=== PATIENT | female | born 1965 | race Caucasian/White ===

== ENCOUNTER 2019-01-09 11:50 | Emergency (ER) | payer SELFPAY ==
[2019-01-09] MEDS ORDERED: LIDOCAINE 1% INJ-PF (10 MG/ML) 30 ML SDV INJ ONE (13:54)
[2019-01-09] MEDS ORDERED: DIPH/PERTUSS(ACELL)/TETANUS VAC/PF 0.5 ML SYR (>=10YO) IM ONE (13:54)
--- NOTE | 2019-01-09 13:55 | ER Document Report ---
ED Medical Screen (RME) - General Chief Complaint: Laceration Stated Complaint: FINGER LACERATION Time Seen by Provider: 01/09/19 13:52 TRAVEL OUTSIDE OF THE [place] 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 Able to move finger w/o difficulty. Unknown last tetanus. I have treated and performed a rapid initial assessment of this patient. A comprehensive ED assessment and evaluation of the patient, analysis of test results and completion of medical decision making process will be conducted by additional ED providers. PHYSICAL EXAMINATION: GENERAL: Well-appearing, well-nourished and in no acute distress. A&Ox4. Answers questions appropriately. Rt index: approx 1.5cm linear superficial laceration noted dorsal distal finger. N/V intact distal. - Related Data Allergies/Adverse Reactions: hydrocortisone Allergy (Verified 01/09/19 11:51) Physical Exam - Vital signs Vitals: Temp Pulse Resp BP Pulse Ox 98 F 87 18 177/84 H 94 01/09/19 11:55 01/09/19 11:55 01/09/19 11:55 01/09/19 11:55 01/09/19 11:55 Course - Vital Signs Vital signs: Temp Pulse Resp BP Pulse Ox 98 F 87 18 177/84 H 94 01/09/19 11:55 01/09/19 11:55 01/09/19 11:55 01/09/19 11:55 01/09/19 11:55
--- NOTE | 2019-01-09 14:43 | ER Document Report ---
ED General - General Chief Complaint: Laceration Stated Complaint: FINGER LACERATION Time Seen by Provider: 01/09/19 13:52 Mode of Arrival: Ambulatory Information source: Patient TRAVEL OUTSIDE OF THE [place] IN LAST 30 DAYS: No - HPI Patient complains to provider of: Right index finger laceration Onset: Just prior to arrival Onset/Duration: Sudden Quality of pain: Sharp Severity: Severe Pain Level: 5 Associated symptoms: None Exacerbated by: Denies Relieved by: Denies Similar symptoms previously: No Recently seen / treated by doctor: No Notes: 53-year-old female with right index finger laceration. Cut it with a blade while cleaning a window. Last tetanus unknown. Has good movement in the right index finger. - Related Data Allergies/Adverse Reactions: hydrocortisone Allergy (Verified 01/09/19 11:51) Past Medical History - General Information source: Patient - Social History Smoking Status: Current Every Day Smoker Family History: Reviewed & Not Pertinent Review of Systems - Review of Systems Notes: Constitutional: No fevers. No chills. EENT: No eye redness. No eye pain. No ear pain. No sore throat. Cardiovascular: No chest pain. No palpitations. Respiratory: No cough. No shortness of breath. No respiratory distress. Gastrointestinal: No abdominal pain. No nausea, vomiting, or diarrhea. Genitourinary: Atraumatic. No lesions. No pain. No discharge. Musculoskeletal: Positive right index finger laceration Skin: No rash or lesions. Lymphatic: No swollen lymph nodes. Neurologic: No headache. No syncope. Psychiatric: No suicidal or homicidal ideation. Physical Exam - Vital signs Vitals: Temp Pulse Resp BP Pulse Ox 98 F 87 18 177/84 H 94 01/09/19 11:55 01/09/19 11:55 01/09/19 11:55 01/09/19 11:55 01/09/19 11:55 - Notes Notes: General: Well-developed, well-nourished. In no acute distress. Non-toxic appearing. Cardiac: Well-perfused. Regular rate and rhythm. No murmurs, rubs, or gallops. Pulmonary: No respiratory distress. No cyanosis. Bilateral lung fiels are clear to auscultation. Abdominal: Non-distended. Non-rigid. Bowels sounds are present in all four quadrants. No guarding or rebound. HEENT: Head is atraumatic. Conjunctivae not reddened. No tearing. PERRL. EOMI. Orbits atraumatic. No periorbital swelling or erythema. Oropharynx is without erythema, swelling, or exudates. Neck: Supple. No adenopathy. No meningismus. Dermatologic: Warm with good turgor. No rash. Atraumatic. Chest: Atraumatic. No chest wall tenderness to palpation. Musculoskeletal: 3 cm laceration aspect right index finger. No active bleeding. Full range of motion at all joints. Distal neurovascular exam is intact Genitourinary: Examination deferred Neurologic: No gross neurologic deficits. Psychiatric: Normal mood. Course - Vital Signs Vital signs: Temp Pulse Resp BP Pulse Ox 98 F 87 18 177/84 H 94 01/09/19 11:55 01/09/19 11:55 01/09/19 11:55 01/09/19 11:55 01/09/19 11:55 Procedures - Laceration/Wound Repair Right index finger Time completed: 14:40 Wound length (cm): 3 Wound's Depth, Shape: Linear Laceration pre-procedure: Sterile PPE donned, Sterile drapes applied, Shur-Clens applied Anesthetic type: 1% Lidocaine Volume Anesthetic (mLs): 5 Wound explored: Clean Wound Repaired With: Sutures Suture Size/Type: 4:0, Ethilon Number of Sutures: 7 Layer Closure?: No Post-procedure wound care: Sterile dressing applied, Splint applied Post-procedure NV exam normal: Yes Complications: No Discharge - Discharge Clinical Impression: Elevated blood pressure reading Finger laceration Qualifiers: Encounter type: initial encounter Finger: index finger Damage to nail status: without damage Foreign body presence: without foreign body Laterality: right Qualified Code(s): S61.210A - Laceration without foreign body of right index finger without damage to nail, initial encounter Condition: Good Disposition: HOME, SELF-CARE Instructions: Antibiotic Ointment Protection ([facility]), Laceration Care ([facility]), Soap Cleansing ([facility]), Tetanus Immunization Given ([facility]) Additional Instructions: Sutures will be ready to come out in 10 days. You may return here to have this done. However you can also see your doctor or the [facility] for this service. If you would like to have the wound rechecked, please come in in 2 days and have 1 of the providers take a look at it for you. Forms: Smoking Cessation Education, Elevated Blood Pressure Referrals: [facility] [Provider Group] - 01/19/19
[2019-01-09 14:56] VITALS: BP 164/79
== END 2019-01-09 14:56 | disposition home or self-care (01) ==
LOC: ER 11:50
PROC: 0HQFXZZ Repair Right Hand Skin, External Approach (ICD-10-PCS; principal; 2019-01-09)
DX: S61.210A Laceration without foreign body of right index finger without damage to nail, initial encounter (principal); R03.0 Elevated blood-pressure reading, without diagnosis of hypertension; W45.8XXA Other foreign body or object entering through skin, initial encounter; F17.200 Nicotine dependence, unspecified, uncomplicated
CPT/HCPCS: 99282; 90471; 90715; 12002; J3490

== ENCOUNTER 2019-01-20 20:29 | Emergency (ER) | payer SELFPAY ==
--- NOTE | 2019-01-20 22:06 | ER Document Report ---
HPI - HPI Time Seen by Provider: 01/20/19 22:05 Pain Level: 0 Notes: Patient is a 53-year-old female who presents for suture removal status post placement 11 days ago to her right index finger. Patient had 7 sutures placed at that time. Patient states that she has noticed some mild swelling to the finger without significant redness or drainage. She has not noticed any opening to the wound. No other concerns or complaints. Denies any headache, fever, URI, sore throat, chest pain, palpitations, syncope, cough, shortness of breath, wheeze, dyspnea, abdominal pain, nausea/vomiting/diarrhea, urinary retention, dysuria, hematuria, loss of control of bowel or bladder, numbness/tingling, muscle paralysis/weakness, or rash. - ROS Systems Reviewed and Negative: Yes All other systems reviewed and negative - REPRODUCTIVE Reproductive: DENIES: : Past Medical History - Social History Smoking Status: Current Every Day Smoker Family History: Reviewed & Not Pertinent Patient has suicidal ideation: No Patient has homicidal ideation: No Renal/ Medical History: Denies: Hx Peritoneal Dialysis Vertical Provider Document - CONSTITUTIONAL Agree With Documented VS: Yes Notes: PHYSICAL EXAMINATION: GENERAL: Well-appearing, well-nourished and in no acute distress. LUNGS: Breath sounds clear to auscultation bilaterally and equal. No wheezes rales or rhonchi. HEART: Regular rate and rhythm without murmurs, rubs, gallops. Musculoskeletal: Rt index: FROM to passive/active. Strength 5+/5. N/v intact distal. + 7 sutures intact. There is mild erythema at the distal laceration site with mild swelling of the finger noted. No streaks or purulence. + mild tenderness to the distal lac site. Extremities: No cyanosis, clubbing, or edema b/l. Peripheral pulses 2+. Capillary refill less than 3 seconds. NEUROLOGICAL: Normal speech, normal gait. Normal sensory, motor exams PSYCH: Normal mood, normal affect. SKIN: see above. - INFECTION CONTROL TRAVEL OUTSIDE OF THE [place] IN LAST 30 DAYS: No Course - Re-evaluation Re-evalutation: 01/20/19 22:18 Patient is an afebrile, well-hydrated, 53-year-old female who presents for suture removal and noted possible mild infection of the digit without obvious fl uctuance or abscess. Vitals are acceptable without significant tachycardia, tachypnea, or hypoxia. PE is otherwise unremarkable. Sutures were removed successfully without any complications. There is no evidence of wound dehiscence. There is some mild warmth and erythema associated so I will cover her with an antibiotic. Wound instructions reviewed. Patient to recheck with your PCM later this week. Return to the ED with any other worsening/concerning symptoms. Patient is in agreement. - Vital Signs Vital signs: Temp Pulse Resp BP Pulse Ox 98.0 F 88 20 150/84 H 96 01/20/19 20:53 01/20/19 20:53 01/20/19 20:53 01/20/19 20:53 01/20/19 20:53 Discharge - Discharge Clinical Impression: Visit for suture removal Condition: Stable Disposition: HOME, SELF-CARE Instructions: Suture Removal Additional Instructions: Keep the skin clean Wash with soap and water Tylenol/ibuprofen if needed Take medication as directed Monitor for any worsening symptoms Recheck with your PCM in 3-5 days Return to the ED with any worsening symptoms and/or development of fever, headache, chest pain, palpitations, syncope, shortness of breath, trouble breathing, abdominal pain, n/v/d, abscess, purulent discharge, red streaks, worsening swelling, or other worsening symptoms that are concerning to you. Prescriptions: Clindamycin HCl [Cleocin 300 mg Capsule] 300 mg PO TID #30 capsule Forms: Elevated Blood Pressure Referrals: [facility] [Provider Group] - Follow up as needed
[2019-01-20 22:26] VITALS: BP 158/78
== END 2019-01-20 22:23 | disposition home or self-care (01) ==
LOC: ER 20:29
DX: S61.210D Laceration without foreign body of right index finger without damage to nail, subsequent encounter (principal); X58.XXXD Exposure to other specified factors, subsequent encounter; L53.9 Erythematous condition, unspecified; M79.89 Other specified soft tissue disorders; F17.200 Nicotine dependence, unspecified, uncomplicated

== ENCOUNTER 2019-06-11 14:07 | Emergency (ER) | payer SELFPAY ==
[2019-06-11 14:13] VITALS: BP 163/87
[2019-06-11] MEDS ORDERED: LIDOCAINE 1% INJ-PF (10 MG/ML) 30 ML SDV INJ ONE (14:17)
--- NOTE | 2019-06-11 14:23 | ER Document Report ---
HPI - HPI Time Seen by Provider: 06/11/19 14:17 Pain Level: 0 Notes: Patient is a 54-year-old female no significant past medical history presents complaining laceration to her right anterior lateral wrist that occurred prior to arrival. Patient states that she was putting something away when she cut herself on a knife that was relatively clean. Her last tetanus was a year ago. She is able to move her fingers without difficulty. Patient states that the bleeding is been well controlled with gauze. Denies any drug allergies aside from hydrocortisone cream. No other concerns or complaints. Denies any headache, fever, neck pain, URI, sore throat, chest pain, palpitations, syncope, cough, shortness of breath, wheeze, dyspnea, abdominal pain, nausea/vomiting/diarrhea, urinary retention, dysuria, hematuria, loss of control of bowel or bladder, numbness/tingling, muscle paralysis/weakness, or rash. - ROS Systems Reviewed and Negative: Yes All other systems reviewed and negative - REPRODUCTIVE Reproductive: DENIES: : Past Medical History - Social History Smoking Status: Current Every Day Smoker Family History: Reviewed & Not Pertinent Patient has suicidal ideation: No Patient has homicidal ideation: No Renal/ Medical History: Denies: Hx Peritoneal Dialysis Vertical Provider Document - CONSTITUTIONAL Agree With Documented VS: Yes Notes: PHYSICAL EXAMINATION: GENERAL: Well-appearing, well-nourished and in no acute distress. HEAD: Atraumatic, normocephalic. NECK: Normal range of motion, supple without lymphadenopathy. No midline tenderness. LUNGS: Breath sounds clear to auscultation bilaterally and equal. No wheezes rales or rhonchi. HEART: Regular rate and rhythm without murmurs, rubs, gallops. Musculoskeletal: Rt hand/wrist: + irregular, superficial 3cm laceration noted. No significant active bleeding. No erythema, warmth, ecchymosis, deformity, or swelling noted. N/V intact distal. FROM to passive/active at the wrist. 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 No bony tenderness. Extremities: No cyanosis, clubbing, or edema b/l. Peripheral pulses 2+. Capillary refill less than 3 seconds. NEUROLOGICAL: Normal speech, normal gait. Normal sensory, motor exams otherwise unremarkable PSYCH: Normal mood, normal affect. SKIN: see above. No rash - INFECTION CONTROL TRAVEL OUTSIDE OF THE [place] IN LAST 30 DAYS: No Course - Re-evaluation Re-evalutation: 06/11/19 15:05 Patient is an afebrile, well-hydrated, 54-year-old female who presents to the ED with a laceration to her right anterior lateral wrist. Vitals are acceptable. PE is otherwise unremarkable for any neurovascular compromise, obvious tendon/ligament rupture, obvious fracture/dislocation, septic joint. Patient is nontoxic-appearing and is tolerating p.o. without difficulties. Wound was thoroughly irrigated and cleansed. Wound edges were approximated appropriately utilizing 6 simple interrupted sutures. Wound dressing was placed and wound instructions reviewed. Patient tolerated procedure well without any complications. Tetanus was reported to be utd. No further labs or imaging warranted. Sutures will need removed in 10 days. Recheck with your PCM in 2-3 days. Consider consult orthopedics if needed. Return to the ED with any worsening/concerning symptoms otherwise as reviewed in discharge. Patient is in agreement. - Vital Signs Vital signs: Temp Pulse Resp BP Pulse Ox 97.7 F 101 H 18 163/87 H 96 06/11/19 14:12 06/11/19 14:12 06/11/19 14:12 06/11/19 14:12 06/11/19 14:12 Procedures - Laceration/Wound Repair Right Wrist Wound length (cm): 3 Wound's Depth, Shape: Superficial, Irregular Laceration pre-procedure: Sterile PPE donned, Sterile drapes applied, Other - chlorhexadine/saline Anesthetic type: 1% Lidocaine Volume Anesthetic (mLs): 4 Wound explored: Clean, No foreign body removed Irrigated w/ Saline (mLs): 200 Wound Debrided: Minimal Wound Repaired With: Sutures Suture Size/Type: 4:0, Ethilon Number of Sutures: 6 Layer Closure?: No Post-procedure wound care: Sterile dressing applied Post-procedure NV exam normal: Yes Complications: No Discharge - Discharge Clinical Impression: Laceration of right wrist Qualifiers: Encounter type: initial encounter Qualified Code(s): S61.511A - Laceration without foreign body of right wrist, initial encounter Condition: Stable Disposition: HOME, SELF-CARE Instructions: Soap Cleansing ([facility]) Additional Instructions: Do not shower or bathe for 24 hours. After 24 hours you may shower but no submersion of the wound under water. Keep the original dressing on the wound for 24 hours unless the drainage soaks through. Change the dressing daily thereafter and keep the knots of the suture material clean from any dried dis charge. You may leave the wound open to the air once there is no more discharge. See your PCM in 2-3 days for a recheck. Monitor for any signs of worsening pain or redness, purulent drainage, streaks, and/or fever. Return to the ED if noticing any of the above symptoms or as needed. Take medications as directed. Your sutures will need to be removed in 10 days. Prescriptions: Cephalexin Monohydrate [Keflex 500 mg Capsule] 500 mg PO BID #10 capsule Forms: Elevated Blood Pressure, Smoking Cessation Education Referrals: [facility] [Provider Group] - Follow up as needed
== END 2019-06-11 15:17 | disposition home or self-care (01) ==
LOC: ER 14:07
DX: S61.511A Laceration without foreign body of right wrist, initial encounter (principal); W26.0XXA Contact with knife, initial encounter; Y93.89 Activity, other specified; F17.200 Nicotine dependence, unspecified, uncomplicated
CPT/HCPCS: 12002; J3490; 99282

== ENCOUNTER 2019-06-22 17:28 | Emergency (ER) | payer SELFPAY ==
[2019-06-22 17:32] VITALS: BP 160/83
--- NOTE | 2019-06-22 18:20 | ER Document Report ---
HPI - HPI Patient complains to provider of: Suture removal Time Seen by Provider: 06/22/19 18:13 Onset: Other - 11 days Onset/Duration: Better Pain Level: Denies Context: Patient is here for suture removal to hand laceration. Patient denies any pain symptoms. Patient states she did start to notice some mild redness around the sutures. No purulent drainage. Associated Symptoms: None Exacerbated by: Denies Relieved by: Denies Similar symptoms previously: No Recently seen / treated by doctor: Yes - ROS ROS below otherwise negative: Yes Systems Reviewed and Negative: Yes All other systems reviewed and negative - CONSTITUTIONAL Constitutional: DENIES: Fever - GASTROINTESTINAL Gastrointestinal: DENIES: Nausea - REPRODUCTIVE Reproductive: DENIES: : - DERM Skin Color: Erythema Skin Problems: Laceration Past Medical History - General Information source: Patient - Social History Smoking Status: Never Smoker Chew tobacco use (# tins/day): No Frequency of alcohol use: None Drug Abuse: None 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 IN LAST 30 DAYS: No - HEENT HEENT: Atraumatic, Normocephalic - NECK Neck: Normal Inspection - RESPIRATORY Respiratory: No Respiratory Distress - CARDIOVASCULAR Pulses: Normal: Radial - MUSCULOSKELETAL/EXTREMETIES Musculoskeletal/Extremeties: MAEW, FROM - NEURO Level of Consciousness: Awake, Alert, Appropriate Motor/Sensory: No Motor Deficit - DERM Integumentary: Warm, Dry, Laceration - Sutured laceration to the radial aspect of thenar eminence, patient with 6 intact sutures, wound edges approximated, mild erythema around the sutures, no lymphangitis Course - Re-evaluation Re-evalutation: 06/22/19 18:21 Patient with mild erythema surrounding the sutures, suspect local reaction to the suture material, no concern for cellulitis or lymphangitis at this time. - Vital Signs Vital signs: Temp Pulse Resp BP Pulse Ox 97.5 F 94 18 160/83 H 96 06/22/19 17:31 06/22/19 17:31 06/22/19 17:31 06/22/19 17:31 06/22/19 17:31 Discharge - Discharge Clinical Impression: Visit for suture removal Condition: Stable Disposition: HOME, SELF-CARE Instructions: Care of Steri-Strip Closure ([facility]), Suture Removal Additional Instructions: Return immediately for any new or worsening symptoms Followup with your primary care provider, call tomorrow to make a followup appointment Forms: Smoking Cessation Education Referrals: [facility] [Provider Group] - Follow up as needed
== END 2019-06-22 18:26 | disposition home or self-care (01) ==
LOC: ER 17:28
DX: S61.411D Laceration without foreign body of right hand, subsequent encounter (principal); X58.XXXD Exposure to other specified factors, subsequent encounter

== ENCOUNTER 2019-08-20 18:11 | Emergency (ER) | payer BC ==
--- NOTE | 2019-08-20 19:03 | RADIOLOGY REPORT (SQ) ---
EXAM DESCRIPTION: CHEST SINGLE VIEW COMPLETED DATE/TIME: 08/20/2019 6:53 pm REASON FOR STUDY: sob COMPARISON: None. EXAM PARAMETERS: NUMBER OF VIEWS: One view. TECHNIQUE: Single frontal radiographic view of the chest acquired. RADIATION DOSE: NA LIMITATIONS: None. FINDINGS: LUNGS AND PLEURA: No opacities, masses or pneumothorax. No pleural effusion. MEDIASTINUM AND HILAR STRUCTURES: No masses. Contour normal. HEART AND VASCULAR STRUCTURES: Heart normal in size. Normal vasculature. BONES: No acute findings. HARDWARE: None in the chest. OTHER: No other significant finding. IMPRESSION: NO ACUTE RADIOGRAPHIC FINDING IN THE CHEST. TECHNICAL DOCUMENTATION: JOB ID: [id number] [employer]- All Rights Reserved Reading location - IP/workstation name: [email or web address]
[2019-08-20 19:26] LABS: ABSOLUTE LYMPHOCYTES (AUTO) 0.9 10^3/uL (0.5-4.7); ABSOLUTE MONOCYTES (AUTO) 0.9 10^3/uL (0.1-1.4); ABSOLUTE NEUT (AUTO) 5.4 10^3/uL (1.7-8.2); BASOPHILS % (AUTO) 0.4 % (0-2); HEMATOCRIT 45.2 % (36.0-47.0); HEMOGLOBIN 15.9 g/dL (12.0-15.5); LYMPHOCYTES % (AUTO) 12.5 % (13-45); MEAN CORPUSCULAR HEMOGLOBIN 32.4 pg (27.0-33.4); MEAN CORPUSCULAR HGB CONC 35.1 g/dL (32.0-36.0); MEAN CORPUSCULAR VOLUME 93 fl (80-97); MONOCYTES % (AUTO) 12.8 % (3-13); PLATELET COUNT 218 10^3/uL (150-450); RED BLOOD COUNT 4.89 10^6/uL (3.72-5.28); RED CELL DISTRIBUTION WIDTH 14.2 % (11.5-14.0); SEGMENTED NEUTROPHILS % (AUTO) 74.3 % (42-78); TOTAL CELLS COUNTED % (AUTO) 100 %; WHITE BLOOD COUNT 7.3 10^3/uL (4.0-10.5)
[2019-08-20 19:39] LABS: ALBUMIN 4.5 g/dL (3.5-5.0); ALKALINE PHOSPHATASE 77 U/L (38-126); ANION GAP 12 (5-19); ASPARTATE AMINO TRANSFERASE 34 U/L (14-36); BILIRUBIN,TOTAL 0.5 mg/dL (0.2-1.3); BLOOD UREA NITROGEN 12 mg/dL (7-20); CALCIUM 9.5 mg/dL (8.4-10.2); CARBON DIOXIDE 29 mmol/L (22-30); CHLORIDE 96 mmol/L (98-107); GLUCOSE 90 mg/dL (75-110); TOTAL PROTEIN 7.3 g/dL (6.3-8.2)
[2019-08-20] MEDS ORDERED: IPRATROPIUM/ALBUTEROL 0.5-2.5 MG/3 ML AMPUL NEB ONE (21:59)
[2019-08-20] MEDS ORDERED: METHYLPREDNISOLONE INJ 125 MG/2 ML SDV IV ONE (21:59)
[2019-08-20] MEDS ORDERED: KETOROLAC TROMETHAMINE INJ/PF 30 MG/1 ML SDV IV ONE (22:09)
[2019-08-20] MEDS ORDERED: BENZONATATE 100 MG CAPSULE PO ONE (22:09)
--- NOTE | 2019-08-20 22:17 | ER Document Report ---
ED General - General Chief Complaint: Shortness Of Breath Stated Complaint: DIFFICULTY BREATHING Time Seen by Provider: 08/20/19 21:50 Primary Care Provider: [facility] [Provider Group] - Follow up in 3-5 days Notes: 54-year-old female that is a smoker presents for dyspnea and 1 week history of productive cough. Patient states she was seen by her PCP 1 week ago and was prescribed amoxicillin that she has been taking for the past 7 days. Patient was given breathing treatment by EMS. Patient denies any history of asthma or COPD. Patient states she has been coughing up green mucus. Patient also rep orts fever that has improved with Motrin/Tylenol. Patient denies any chest pain, abdominal pain, nausea/vomiting. TRAVEL OUTSIDE OF THE [place] IN LAST 30 DAYS: No - Related Data Allergies/Adverse Reactions: hydrocortisone Allergy (Verified 06/22/19 18:06) Past Medical History - Social History Smoking Status: Current Every Day Smoker Family History: Reviewed & Not Pertinent Patient has suicidal ideation: No Patient has homicidal ideation: No Renal/ Medical History: Denies: Hx Peritoneal Dialysis Past Surgical History: Reports: Other - Axillary surgery for hidradenitis Review of Systems - Review of Systems Notes: Constitutional: Positive for fever. HENT: Negative for sore throat. Eyes: Negative for visual changes. Cardiovascular: Negative for chest pain. Respiratory: Positive for shortness of breath and productive cough. Gastrointestinal: Negative for abdominal pain, vomiting or diarrhea. Genitourinary: Negative for dysuria. Musculoskeletal: Negative for back pain. Skin: Negative for rash. Neurological: Negative for headaches, weakness or numbness. 10 point ROS negative except as marked above and in HPI. Physical Exam - Vital signs Vitals: Resp Pulse Ox 27 H 94 08/20/19 18:39 08/20/19 18:39 - Notes Notes: GENERAL: Well-appearing, well-nourished and in no acute distress. HEAD: Atraumatic, normocephalic. EYES: Extraocular movements intact, sclera anicteric, conjunctiva are normal. NECK: Normal range of motion, supple without lymphadenopathy or JVD. LUNGS: Nonproductive cough. Decreased breath sounds with mild wheezing. No accessory muscle use. No tripoding. No cyanosis. HEART: Regular rate and rhythm without murmurs, rubs or gallops. EXTREMITIES: Normal range of motion, no pitting or edema. No clubbing or cyanos is. NEUROLOGICAL: Cranial nerves II through XII grossly intact. Normal speech, normal gait. PSYCH: Normal mood, normal affect. SKIN: Warm, Dry, normal turgor, no rashes or lesions noted. Course - Re-evaluation Re-evalutation: 08/20/19 54-year-old female presents with dyspnea and productive cough. Patient has been prescribed amoxicillin with little relief. Patient was given 1 DuoNeb by EMS. Decreased breath sounds with mild wheezing noted. No respiratory distress. Patient is currently 93% on room air. Patient denies any history of asthma or COPD however she is a chronic smoker. Chest x-ray shows no pneumonia and is otherwise negative. Patient's lab work shows no leukocytosis. Patient is mildly tachycardic. Patient is afebrile. DuoNeb ordered and Solu-Medrol. Patient is also complaining of a headache so Toradol was also added. Tessalon Perles also ordered for cough. 08/20/19 23:50 Pt feels better. Increased air movement with wheezing. Magnesium and xopenex ordered. 08/21/19 02:01 Pt ambulated with pulse ox. Pt remained 91-93% and HR 115. 08/21/19 02:[address] Choudhury, attending, who agrees with plan of care. Pt has good air movement and desats slightly however no accessory muscle use, no tripoding, no cyanosis. Pt speaks full sentences without difficulty. Pt appears to have COPD and will treat accordingly. Pt given strict return precautions and close follow up with PCP. 08/21/19 02:21 Pt has better air movement. No wheezing. Discussed return precautions. Pt voices understanding and agrees with plan of care. - Vital Signs Vital signs: Temp Pulse Resp BP Pulse Ox 98.1 F 117 H 25 H 122/111 H 97 08/20/19 21:53 08/20/19 18:43 08/21/19 01:05 08/20/19 23:00 08/21/19 00:01 - Laboratory Result Diagrams: 08/20/19 18:35 08/20/19 18:35 Laboratory results interpreted by me: 08/20/19 08/20/19 18:35 18:35 Hgb 15.9 H RDW 14.2 H Lymph % (Auto) 12.5 L Sodium 136.5 L Chloride 96 L Discharge - Discharge Clinical Impression: Acute bronchitis Qualifiers: Bronchitis organism: unspecified organism Qualified Code(s): J20.9 - Acute bronchitis, unspecified Condition: Stable Disposition: HOME, SELF-CARE Instructions: Bronchitis ([facility]), Bronchitis With Bronchospasm (Wheezing) ([facility]) Additional Instructions: Your chest x-ray did not show pneumonia. Please take prednisone as prescribed and finish all doses even if you feel better. Take Tessalon Perles as needed for coughing. Please use inhaler as needed for shortness of breath. Follow up with your primary care doctor in 2-3 days. Return immediately to ER if you start having any worsening symptoms, including worsening shortness of breath, feeling like you cannot walk short distances without becoming short of breath, not being able to talk without having to catch your breath, fever, coughing up blood, chest pain, nausea/vomiting, or any other symptoms that are concerning to you. Prescriptions: Benzonatate [Tessalon Perles 100 mg Capsule] 100 mg PO Q8HP PRN #40 capsule PRN Reason: Prednisone [Deltasone 20 mg Tablet] 20 mg PO BID #14 tablet Albuterol Sulfate [Proair HFA Inhalation Aerosol 8.5 gm MDI] 2 puff IH Q4H PRN #1 mdi PRN Reason: Referrals: [facility] [Provider Group] - Follow up in 3-5 days
[2019-08-20] MEDS ORDERED: MAGNESIUM SULFATE/D5W 1 GM/100 ML RTUPB IV ONE (23:46)
[2019-08-20] MEDS ORDERED: LEVALBUTEROL HCL NEB 1.25 MG/3 ML AMPUL NEB ONE (23:50)
[2019-08-21 02:54] VITALS: BP 93/67
--- NOTE | 2019-08-21 13:06 | EKG REPORT ---
SEVERITY:- ABNORMAL ECG - SINUS TACHYCARDIA RIGHT ATRIAL ABNORMALITY : Confirmed by: Sultana Metcalf 21-Aug-2019 13:05:07
== END 2019-08-21 02:55 | disposition home or self-care (01) ==
LOC: ER 18:11
DX: J20.9 Acute bronchitis, unspecified (principal); R06.02 Shortness of breath; F17.200 Nicotine dependence, unspecified, uncomplicated
CPT/HCPCS: 93005; 94640 ×2; 99285; 96375; 96365; 36415; 85025; 80053; 71045; 93010; J2930; J1885; J3475; J3490; J7620